=== PATIENT | female | born 1980 ===

== ENCOUNTER 2017-10-02 19:55 | Emergency (ER) | payer MEDICAID ==
[2017-10-02 19:55] VITALS: BMI 31.8
[2017-10-02 20:03] VITALS: BP 130/72; PULSE 98; RESP 16; TEMP 97.7; O2SAT 100
--- NOTE | 2017-10-02 20:59 | ED PDOC ---
HPI: Abdomen Time Seen by Provider: 10/02/17 20:20 Chief Complaint (Nursing): Abdominal Pain Chief Complaint (Provider): Abdominal Pain History Per: Patient History/Exam Limitations: no limitations Onset/Duration Of Symptoms: Days Additional Complaint(s): 37 y/o female, 9 weeks (G3), who presents to the emergency department with a complaint of vaginal bleeding since yesterday, 10/01/2017. Associated with lower abdominal pain, cramps, and lower back pain. Denies any care for this or any further medical complaints. Last menstrual period : 9 weeks ago. Past Medical History Reviewed: Historical Data, Nursing Documentation, Vital Signs Vital Signs: Last Vital Signs Temp 97.7 F 10/02/17 20:01 Pulse 98 H 10/02/17 20:01 Resp 16 10/02/17 20:01 BP 130/72 10/02/17 20:01 Pulse Ox 100 10/02/17 21:51 - Medical History PMH: Denies: HIV, Chronic Kidney Disease - Family History Family History: States: Unknown Family Hx - Home Medications Home Medications: Ambulatory Orders Medication Instructions Recorded Levofloxacin [Levaquin] 750 mg PO DAILY #0 tablet 09/08/16 - Allergies Allergies/Adverse Reactions: Allergies Allergy/AdvReac Type Severity Reaction Status Date / Time No Known Allergies Allergy Verified 10/02/17 20:01 Review of Systems ROS Statement: Except As Marked, All Systems Reviewed And Found Negative (As per HPI, otherwise negative) Constitutional: Negative for: Other ( care) Gastrointestinal: Positive for: Abdominal Pain (Lower region ("cramps")) Genitourinary Female: Positive for: Vaginal Bleeding Musculoskeletal: Positive for: Back Pain (Lower) Physical Exam - Reviewed Nursing Documentation Reviewed: Yes Vital Signs Reviewed: Yes - Physical Exam Appears: Positive for: Non-toxic, No Acute Distress Head Exam: Positive for: ATRAUMATIC, NORMAL INSPECTION, NORMOCEPHALIC Skin: Positive for: Normal Color, Warm, Dry Gastrointestinal/Abdominal: Positive for: Normal Exam, Soft. Negative for: Tenderness Pelvic Exam: Positive for: No Masses, Active Bleeding (Moderate bleeding with tissue protruding from cervical os. ), Other (Cervical os with fingertip open. ) . Negative for: Lesions Neurologic/Psych: Positive for: Alert, Oriented (x3) - Laboratory Results Result Diagrams: 10/02/17 20:48 - ECG O2 Sat by Pulse Oximetry: 100 (RA) Pulse Ox Interpretation: Normal Medical Decision Making Medical Decision Making: Time: 2019 Initial Impression: Abdominal pain and vaginal bleeding status post 9 week intrauterine Initial Plan: --Type and Screen --Beta-HCG, Quantitative --CBC w/ diff --OB Transvaginal US --Reevaluation Time: 2047 --WBC: 13.0 (high) --Beta HCG, Quantitative: 8325.80 Scribe~Attestation: Documented by Cher Campbell, acting as a scribe for Jillian Johnson MD. Provider Scribe~Attestation: All medical record entries made by the Scribe were at my direction and personally dictated by me. I have reviewed the chart and agree that the record accurately reflects my personal performance of the history, physical exam, medical decision making, and the department course for this patient. I have also personally directed, reviewed, and agree with the discharge instructions and disposition. Disposition - Clinical Impression Clinical Impression: Miscarriage - Patient ED Disposition Is Patient to be Admitted: No Counseled Patient/Family Regarding: Studies Performed, Diagnosis, Need For Followup - Disposition [facility] Disposition: Routine/Home Disposition Time: 23:50 Condition: FAIR Instructions: Spontaneous Miscarriage (ED) Forms: [employer] (Spanish)
[2017-10-02 21:24] LABS: BASO # 0.1 K/uL (0.0-0.2); BASO % 0.6 % (0.0-2.0); EOS # 0.2 K/uL (0.0-0.7); EOS % 1.7 % (0.0-4.0); LYMPH # 2.6 K/uL (1.0-4.3); LYMPH % 19.7 % (20.0-40.0); MEAN CELL VOLUME 86.3 fl (81.0-99.0); MEAN CORPUSCULAR HEMOGLOBIN 27.6 pg (27.0-31.0); MEAN PLATELET VOLUME 10.3 fl (7.2-11.7); MONO # 1.1 K/uL (0.0-0.8); MONO % 8.3 % (0.0-10.0); NEUT # 9.1 K/uL (1.8-7.0); NEUT % 69.7 % (50.0-75.0); RED CELL DISTRIBUTION WIDTH 15.1 % (11.5-14.5)
--- NOTE | 2017-10-02 23:52 | US ---
EXAM: US Uterus, Limited CLINICAL HISTORY: 37 years old, female; Signs and symptoms; Lmp or gestational age (in weeks): 07/11/17; Antepartum complications; Hemorrhage; Additional info: R/O ectopic TECHNIQUE: Transabdominal pelvic ultrasound was performed. Beta-hCG level 8325 COMPARISON: No relevant prior studies available. FINDINGS: No intrauterine is identified. No gestational sac or pole. The uterus is normal measuring 10.1 x 4.8 x 5.3 cm. Endometrial thickness measures 1 cm and is unremarkable. The cervix is normal measuring 4.5 cm. The ovaries are normal. The right ovary measures 2.2 x 1.6 x 2.3 cm. The left ovary measures 1.9 x 1.1 x 1.3 cm. The bladder is normal. IMPRESSION: No intrauterine is identified. Diagnostic considerations include spontaneous given the history of heavy bleeding. However, ectopic is not excluded. Recommend followup serial beta-hCG levels and ultrasound if clinically indicated.
== END 2017-10-02 23:58 | disposition home or self-care (01) ==
LOC: H.ER 19:55
DX: O03.9 Complete or unspecified spontaneous abortion without complication (principal); Z36.9 Encounter for antenatal screening, unspecified; Z3A.10 10 weeks gestation of pregnancy